=== PATIENT | female | born 1995 | race Caucasian/White ===

== ENCOUNTER 2018-07-02 11:49 | Emergency (ER) | payer OTHER ==
[~2018-07-02] VITALS: Ht 154.9 cm; Wt 68.0 kg
[~2018-07-02 11:49] MED LIST: HYDROCODONE-AP1 EAC6 PO; IBUPROFEN 800800 M1 PO; TRINATE TABLET1 TAB PO
[2018-07-02] MEDS ORDERED: KEFLEX500 M1 PO (12:34)
[2018-07-02] MEDS ORDERED: AFRIN15 ML NS (12:34)
[2018-07-02] MEDS ORDERED: MEDROLDOSEPACK PO (12:34)
[2018-07-02] MEDS ORDERED: CLARITIN10 MG PO (12:36)
[2018-07-02 12:43] VITALS: BP 121/66
== END 2018-07-02 12:43 | disposition home or self-care (01) ==
LOC: M.ERS 11:49
DX: H66.91 Otitis media, unspecified, right ear (principal); H72.91 Unspecified perforation of tympanic membrane, right ear; J45.909 Unspecified asthma, uncomplicated; F17.210 Nicotine dependence, cigarettes, uncomplicated; Z98.890 Other specified postprocedural states; Z88.0 Allergy status to penicillin